=== PATIENT | male | born 1995 | race Caucasian/White ===

== ENCOUNTER 2016-05-24 07:10 | Emergency (ER) | payer BC ==
--- NOTE | 2016-05-24 07:13 | EDPHY ---
H & P Time Seen by Provider: 05/24/16 07:13 HPI/ROS: CHIEF COMPLAINT: Abdominal pain and vomiting HISTORY OF PRESENT ILLNESS: The patient presents the emergency department with complaints of abdominal pain and vomiting. The patient reports he has been symptomatic for the past 2 days. The patient complains of mild generalized abdominal cramping. The patient denies diarrhea. The patient's mother is reportedly sick with gastroenteritis also. The patient denies a past medical history noteworthy only for anxiety. The patient does take Zoloft one a daily basis. REVIEW OF SYSTEMS: A comprehensive 10 point review of systems is otherwise negative aside from elements mentioned in the history of present illness. Source: Patient Exam Limitations: No limitations - Medical/Surgical History PMH: Past medical history: Anxiety - Family History Significant Family History: No pertinent family hx - Social History Smoking Status: Never smoked - Physical Exam Exam: General Appearance: Anxious Eyes: Pupils equal and round no pallor or injection ENT, Mouth: Mucous membranes moist Respiratory: There are no retractions, lungs are clear to auscultation Cardiovascular: Regular rate and rhythm Gastrointestinal: Abdomen is soft and nontender, no masses, bowel sounds normal Neurological: A&O, normal motor function, normal sensory exam, normal cranial nerves Skin: Warm and dry, no rashes Musculoskeletal: Neck is supple nontender Extremities: symmetrical, full range of motion Constitutional: Initial Vital Signs Temperature (C) 36.7 C 05/24/16 08:28 Heart Rate 84 05/24/16 08:28 Respiratory Rate 16 05/24/16 08:28 Blood Pressure 138/68 H 05/24/16 08:28 O2 Sat (%) 99 05/24/16 08:28 O2 Delivery Mode Room Air Allergies/Adverse Reactions: No Known Allergies Allergy (Unverified 12/27/12 11:55) Home Medications: Medication Instructions Recorded Ondansetron Odt [Zofran Odt] 4 mg PO Q4PRN PRN #20 tab 05/24/16 Zoloft 100mg (*) 05/24/16 Medical Decision Making ED Course/Re-evaluation: The patient presents to the ED with a 2 day history of vomiting with recent exposure to someone also suffering from gastroenteritis. The patient arrives by paramedics. He received Zofran prior to arrival. The patient does have a history of anxiety and is quite anxious upon arrival. The patient continues to complain of severe nausea. For this the patient received 1 mg of IV Ativan. The patient received a L of normal saline and screening laboratory studies have been sent. The patient's initial abdominal examination is reassuring. Reexamined the patient at 9:30 a.m.: The patient has had no vomiting in the ED. He does feel mildly nauseous. The patient continues to have a normal abdominal examination without evidence of focal tenderness. Re-examined at 10:15 a.m.: Benign abdominal examination, tolerating p.o. fluids , comfortable with discharge to home with plan for symptomatic care. Differential Diagnosis: Differential diagnosis considered includes gastroenteritis, pyelonephritis, nephrolithiasis, pancreatitis, metabolic abnormality, dehydration - Data Points Laboratory Results: Laboratory Results 05/24/16 07:30 05/24/16 07:30 05/24/16 05/24/16 07:30 07:30 WBC 11.37 10^3/uL H 10^3/uL (3.80-9.50) RBC 5.56 10^6/uL 10^6/uL (4.40-6.38) Hgb 15.9 g/dL g/dL (13.7-17.5) Hct 45.4 % % (40.0-51.0) MCV 81.7 fL fL (81.5-99.8) MCH 28.6 pg pg (27.9-34.1) MCHC 35.0 g/dL g/dL (32.4-36.7) RDW 12.0 % % (11.5-15.2) Plt Count 291 10^3/uL 10^3/uL (150-400) MPV 10.5 fL fL (8.7-11.7) Neut % (Auto) 84.1 % H % (39.3-74.2) Lymph % (Auto) 11.3 % L % (15.0-45.0) [place] % (Auto) 3.7 % L % (4.5-13.0) Eos % (Auto) 0.1 % L % (0.6-7.6) Baso % (Auto) 0.4 % % (0.3-1.7) Nucleat RBC Rel Count 0.0 % % (0.0-0.2) Absolute Neuts (auto) 9.57 10^3/uL H 10^3/uL (1.70-6.50) Absolute Lymphs (auto) 1.28 10^3/uL 10^3/uL (1.00-3.00) Absolute Monos (auto) 0.42 10^3/uL 10^3/uL (0.30-0.80) Absolute Eos (auto) 0.01 10^3/uL L 10^3/uL (0.03-0.40) Absolute Basos (auto) 0.04 10^3/uL 10^3/uL (0.02-0.10) Absolute Nucleated RBC 0.00 10^3/uL 10^3/uL (0-0.01) Immature Gran % 0.4 % % (0.0-1.1) Immature Gran # 0.05 10^3/uL 10^3/uL (0.00-0.10) Sodium 142 mEq/L mEq/L (134-144) Potassium 4.1 mEq/L mEq/L (3.5-5.2) Chloride 103 mEq/L mEq/L (97-110) Carbon Dioxide 23 mEq/l mEq/l (22-31) Anion Gap 16 mEq/L mEq/L (8-16) BUN 21 mg/dL mg/dL (7-23) Creatinine 1.0 mg/dL mg/dL (0.7-1.3) Estimated GFR > 60 Glucose 173 mg/dL H mg/dL (70-100) Calcium 9.9 mg/dL mg/dL (8.5-10.4) Total Bilirubin 1.2 mg/dL mg/dL (0.1-1.4) Conjugated Bilirubin 0.4 mg/dL mg/dL (0.0-0.5) Unconjugated Bilirubin 0.8 mg/dL mg/dL (0.0-1.1) AST 34 IU/L IU/L (17-59) ALT 31 IU/L IU/L (21-72) Alkaline Phosphatase 79 IU/L IU/L (38-126) Total Protein 8.5 g/dL H g/dL (6.3-8.2) Albumin 5.3 g/dL H g/dL (3.5-5.0) Lipase 51.0 IU/L IU/L (23-300) Medications Given: Discontinued Medications Sodium Chloride (Ns) 1,000 mls @ 0 mls/hr IV ONCE ONE PRN Reason: Wide Open Stop: 05/24/16 07:21 Last Admin: 05/24/16 07:29 Dose: 1,000 mls Sodium Chloride (Ns) 1,000 mls @ 0 mls/hr IV ONCE ONE PRN Reason: Wide Open Stop: 05/24/16 07:21 Last Admin: 05/24/16 07:39 Dose: 1,000 mls Lorazepam (Ativan Injection) 1 mg IVP EDNOW ONE Stop: 05/24/16 07:20 Last Admin: 05/24/16 07:39 Dose: 1 mg Ondansetron HCl (Zofran) 4 mg IVP EDNOW ONE Stop: 05/24/16 09:47 Last Admin: 05/24/16 09:49 Dose: 4 mg Departure - Departure Disposition: Home, Routine, Self-Care Clinical Impression: Gastroenteritis Condition: Good Instructions: Gastroenteritis (ED) Additional Instructions: 1. Please take Zofran as directed for nausea. 2. Please return to the emergency department for severe pain, intractable vomiting, fever or other concerns. 3. You have been referred to our on-call primary care provider if you wish to establish primary care. Referrals: Urbano Skinner MD [Medical Doctor] - As per Instructions Stand Alone Forms: School Excuse Prescriptions: Ondansetron Odt [Zofran Odt] 4 mg PO Q4PRN PRN #20 tab PRN Reason: For Nausea
[2016-05-24] MEDS ORDERED: LORazepam 2 MG/ML INJ IVP ONE (07:19)
[2016-05-24] MEDS ORDERED: NS 1,000 ML IV ONE ×2 (07:20)
[2016-05-24 07:42] LABS: % IMMATURE GRANULYOCYTES 0.4 % (0.0-1.1); ABSOLUTE IMMATURE GRANULOCYTES 0.05 10^3/uL (0.00-0.10); ADD DIFF? NO; ADD MORPH? NO; ADD SCAN? NO; ATYPICAL LYMPHOCYTE FLAG 10 (0-99); FRAGMENT RBC FLAG 0 (0-99); HEMATOCRIT 45.4 % (40.0-51.0); HEMOGLOBIN 15.9 g/dL (13.7-17.5); LEFT SHIFT FLG 0 (0-99); LIPEMIA HEMOLYSIS FLAG 90 (0-99); MEAN CELL HEMOGLOBIN 28.6 pg (27.9-34.1); MEAN CELL VOLUME 81.7 fL (81.5-99.8); MEAN PLATELET VOLUME 10.5 fL (8.7-11.7); PLATELET CLUMPS FLAG 0 (0-99); PLATELET COUNT 291 10^3/uL (150-400); RED BLOOD CELL COUNT 5.56 10^6/uL (4.40-6.38)
[2016-05-24 08:01] LABS: ALANINE AMINOTRANSFERASE 31 IU/L (21-72); ALBUMIN 5.3 g/dL (3.5-5.0); ALKALINE PHOSPHATASE 79 IU/L (38-126); ANION GAP 16 mEq/L (8-16); ASPARTATE AMINOTRANSFERASE 34 IU/L (17-59); BILIRUBIN,TOTAL 1.2 mg/dL (0.1-1.4); BILIRUBIN-CONJUGATED 0.4 mg/dL (0.0-0.5); BILIRUBIN-UNCONJUGATED 0.8 mg/dL (0.0-1.1); CALCIUM 9.9 mg/dL (8.5-10.4); CARBON DIOXIDE 23 mEq/l (22-31); CHLORIDE 103 mEq/L (97-110); GLOMERULAR FILTRATION RATE > 60; GLUCOSE 173 mg/dL (70-100); POTASSIUM 4.1 mEq/L (3.5-5.2); SODIUM 142 mEq/L (134-144); TOTAL PROTEIN 8.5 g/dL (6.3-8.2)
[2016-05-24 08:29] VITALS: RESP 16; TEMP 98.1; O2SAT 99
[2016-05-24] MEDS ORDERED: IOPAMIDOL (ISOVUE 370) 100 ML BTL IV ONE (09:35)
[2016-05-24] MEDS ORDERED: ONDANSETRON 4 MG/2 ML VIAL IVP ONE (09:46)
[2016-05-24 10:13] VITALS: BP 148/88; PULSE 74
== END 2016-05-24 10:23 | disposition home or self-care (01) ==
LOC: EDUNIT#
DX: K52.9 Noninfective gastroenteritis and colitis, unspecified (principal)
CPT/HCPCS: 96374; J2060; J2405; Q9967

== ENCOUNTER 2017-04-09 07:30 | Emergency (ER) | payer BC ==
--- NOTE | 2017-04-09 08:04 | EDPHY ---
H & P Stated Complaint: N/V x 3 days; seen at 2 days ago;got IVs/zofran;did not get RX filled Time Seen by Provider: 04/09/17 08:00 - Personal History Current Tetanus Diphtheria and Acellular Pertussis (TDAP): Yes - Medical/Surgical History Hx Asthma: No Hx Chronic Respiratory Disease: No Hx Diabetes: No Hx Cardiac Disease: No Hx Renal Disease: No Hx Cirrhosis: No Hx Alcoholism: No Hx HIV/AIDS: No Hx Splenectomy or Spleen Trauma: No Other PMH: severe anxiety - Social History Smoking Status: Never smoked Constitutional: Initial Vital Signs Temperature (C) 36.8 C 04/09/17 07:33 Heart Rate 112 H 04/09/17 07:33 Respiratory Rate 24 H 04/09/17 07:33 Blood Pressure 119/96 H 04/09/17 07:33 O2 Sat (%) 100 04/09/17 07:33 O2 Delivery Mode Room Air Allergies/Adverse Reactions: No Known Allergies Allergy (Verified 04/09/17 07:32) Home Medications: Medication Instructions Recorded Promethazine HCl [Phenergan 12.5mg 12.5 mg MS Q6-8PRN PRN #10 suppr 04/09/17 supp (*)] Medical Decision Making ED Course/Re-evaluation: CHIEF COMPLAINT: Nausea and vomiting. HISTORY OF PRESENT ILLNESS: This patient is a 21 year old male complaining of nausea and vomiting. His symptoms began late Friday night. he woke feeling nauseous and vomited several times after 3am. He was evaluated at urgent care at that time and received IV fluids and antiemetics. He felt better following this, but symptoms returned in 12 hours. He has now been vomiting for three days and unable to eat or keep much fluids down. He denies any abdominal pain but feels sore from vomiting. He denies history of abdominal surgeries. No fever, diarrhea, body aches, cough, shortness of breath, or other associated symptoms. REVIEW OF SYSTEMS: A 10 point review of systems was performed and is negative with the exception of the elements mentioned in the history of present illness. PHYSICAL EXAM: HR, BP, O2 Sat, RR. Temp noted General Appearance: Alert, well hydrated, appropriate, and non-toxic appearing. Head: Atraumatic without scalp tenderness or obvious injury Eyes: Pupils equal, round, reactive to light and accommodation, EOMI, no trauma , no injection. Ears: Clear bilaterally, no perforation, normal landmarks Nose: Atraumatic, no rhinorrhea, clear. Throat: There is no erythema or exudates, no lesions, normal tonsils, mucus membranes moist. Neck: Supple, 2+ carotid upstroke, nontender, no lymphadenopathy. Respiratory: No retractions, no distress, no wheezes, and no accessory muscle use. Lungs are clear to auscultation bilaterally. Cardiovascular: Regular rate and rhythm, no murmurs, rubs, or gallops. Bilateral carotid, radial, dorsalis pedis, and posterior tibial pulses intact. Good capillary refill all extremities. Gastrointestinal: Epigastric tenderness. Abdomen is soft, non-distended, no masses, no rebound, no guarding, no peritoneal signs. Musculoskeletal: Normal active ROM of all extremities, atraumatic. Neurological: Alert, appropriate, and interactive. The patient has normal DTRs and non-focal cranial nerves, motor, sensory, and cerebellar exam. Skin: No rashes, good turgor, no nodules on palpation. Past medical history: Anxiety. Past surgical history: Noncontributory. Family history: Noncontributory. Social history: Single. Student at [employer]. Originally from [place]. DIFFERENTIAL DIAGNOSIS: The differential diagnosis for the patient's nausea and vomiting included but was not limited to gastroenteritis, gastritis, appendicitis, and medication side effect. MEDICAL DECISION [id number] y/o male presents with three day history of nausea and vomiting. He has epigastric tenderness on exam, likely due to frequent vomiting. Plan to administer 1L IV NS, 4mg IV Zofran, and 1mg IV Dilaudid for pain and nausea relief. Patient continues to feel nauseous. Plan to administer 12.5mg IV Phenergan. The patient was initially feeling better after Phenergan for about 20 minutes, then began vomiting again. 10:28 Patient continues to feel nauseous. Discussed admission to hospital for antiemetics and further IVF administration. Has not been able to eat or drink for several days. The patient declines admission at this time and states he is feeling better than earlier. If he is still unable to eat or drink tomorrow he understands he needs to return to the emergency department. Plan to administer an additional 12.5mg IV Phenergan. 11:30 Patient is feeling completely better and is comfortable with discharge home as above. Plan to d/c with prescription for Phenergan. Followup and return precautions discussed. He is comfortable with this plan. - Data Points Laboratory Results: Laboratory Results 04/09/17 08:07 04/09/17 08:07 04/09/17 04/09/17 08:07 08:07 WBC 8.09 10^3/uL 10^3/uL (3.80-9.50) RBC 5.68 10^6/uL 10^6/uL (4.40-6.38) Hgb 16.4 g/dL g/dL (13.7-17.5) Hct 45.1 % % (40.0-51.0) MCV 79.4 fL L fL (81.5-99.8) MCH 28.9 pg pg (27.9-34.1) MCHC 36.4 g/dL g/dL (32.4-36.7) RDW 11.9 % % (11.5-15.2) Plt Count 271 10^3/uL 10^3/uL (150-400) MPV 9.9 fL fL (8.7-11.7) Neut % (Auto) 86.5 % H % (39.3-74.2) Lymph % (Auto) 8.5 % L % (15.0-45.0) [place] % (Auto) 4.3 % L % (4.5-13.0) Eos % (Auto) 0.1 % L % (0.6-7.6) Baso % (Auto) 0.2 % L % (0.3-1.7) Nucleat RBC Rel Count 0.0 % % (0.0-0.2) Absolute Neuts (auto) 6.99 10^3/uL H 10^3/uL (1.70-6.50) Absolute Lymphs (auto) 0.69 10^3/uL L 10^3/uL (1.00-3.00) Absolute Monos (auto) 0.35 10^3/uL 10^3/uL (0.30-0.80) Absolute Eos (auto) 0.01 10^3/uL L 10^3/uL (0.03-0.40) Absolute Basos (auto) 0.02 10^3/uL 10^3/uL (0.02-0.10) Absolute Nucleated RBC 0.00 10^3/uL 10^3/uL (0-0.01) Immature Gran % 0.4 % % (0.0-1.1) Immature Gran # 0.03 10^3/uL 10^3/uL (0.00-0.10) Sodium 144 mEq/L mEq/L (135-145) Potassium 3.5 mEq/L mEq/L (3.5-5.2) Chloride 103 mEq/L mEq/L (97-110) Carbon Dioxide 22 mEq/l mEq/l (22-31) Anion Gap 19 mEq/L H mEq/L (8-16) BUN 15 mg/dL mg/dL (7-23) Creatinine 1.1 mg/dL mg/dL (0.7-1.3) Estimated GFR > 60 Glucose 124 mg/dL H mg/dL (70-100) Calcium 10.1 mg/dL mg/dL (8.5-10.4) Total Bilirubin 0.8 mg/dL mg/dL (0.1-1.4) Conjugated Bilirubin 0.3 mg/dL mg/dL (0.0-0.5) Unconjugated Bilirubin 0.5 mg/dL mg/dL (0.0-1.1) AST 23 IU/L IU/L (17-59) ALT 27 IU/L IU/L (21-72) Alkaline Phosphatase 74 IU/L IU/L (38-126) Total Protein 8.0 g/dL g/dL (6.3-8.2) Albumin 5.1 g/dL H g/dL (3.5-5.0) Lipase 108 IU/L IU/L (23-300) Medications Given: Discontinued Medications Hydromorphone HCl (Dilaudid) 1 mg IVP EDNOW ONE Stop: 04/09/17 08:24 Last Admin: 04/09/17 08:50 Dose: Not Given Sodium Chloride (Ns) 1,000 mls @ 0 mls/hr IV EDNOW ONE; Wide Open PRN Reason: Protocol Stop: 04/09/17 08:06 Last Admin: 04/09/17 08:21 Dose: 1,000 mls Sodium Chloride (Ns) 1,000 mls @ 0 mls/hr IV EDNOW ONE; Wide Open PRN Reason: Protocol Stop: 04/09/17 08:06 Last Admin: 04/09/17 08:23 Dose: 1,000 mls Ketorolac Tromethamine (Toradol) 30 mg IVP EDNOW ONE Stop: 04/09/17 08:24 Last Admin: 04/09/17 08:50 Dose: 30 mg Ondansetron HCl (Zofran) 4 mg IVP EDNOW ONE Stop: 04/09/17 08:24 Last Admin: 04/09/17 08:50 Dose: 4 mg Promethazine HCl (Phenergan) 12.5 mg IVP EDNOW ONE Stop: 04/09/17 09:14 Last Admin: 04/09/17 09:16 Dose: 12.5 mg Promethazine HCl (Phenergan) 12.5 mg IVP EDNOW ONE Stop: 04/09/17 10:33 Last Admin: 04/09/17 10:36 Dose: 12.5 mg Departure - Departure Disposition: Home, Routine, Self-Care Clinical Impression: Nausea and vomiting Qualifiers: Vomiting type: unspecified Vomiting Intractability: non-intractable Qualified Code(s): R11.2 - Nausea with vomiting, unspecified Condition: Good Instructions: Acute Nausea and Vomiting (ED) Additional Instructions: 1. Take Phenergan as prescribed as needed for nausea. 2. Stay well hydrated. 3. Follow up with your primary care physician this week for symptoms unresolved in 1-2 days. 4. Return to the emergency department for uncontrollable vomiting or diarrhea, fever, worsening pain, or other worsening of condition. Referrals: Darvin Sexton MD [Medical Doctor] - As per Instructions Stand Alone Forms: School Excuse Prescriptions: Promethazine HCl [Phenergan 12.5mg supp (*)] 12.5 mg MS Q6-8PRN PRN #10 suppr PRN Reason: Nausea/Vomiting, Use 1st Report Scribed for: Gregorio Baron Report Scribed by: Nancy Alcazar Date of Report: 04/09/17 Time of Report: 11:29
[2017-04-09] MEDS ORDERED: NS 1,000 ML IV ONE ×2 (08:05)
[2017-04-09] MEDS ORDERED: HYDROmorphONE/DILAUDID 1 MG/ML INJ IVP ONE (08:23)
[2017-04-09] MEDS ORDERED: KETOROLAC 30 MG/1 ML SDV IVP ONE (08:23)
[2017-04-09] MEDS ORDERED: ONDANSETRON 4 MG/2 ML VIAL IVP ONE (08:23)
[2017-04-09 08:41] LABS: PLATELET COUNT 271 10^3/uL (150-400)
[2017-04-09] MEDS ORDERED: PROMETHAZINE HCL 25 MG/ML INJ IVP ONE ×2 (09:13→10:32)
[2017-04-09 09:50] VITALS: RESP 18
[2017-04-09 11:44] VITALS: BP 134/92; PULSE 74; TEMP 98.1; O2SAT 95
== END 2017-04-09 11:44 | disposition home or self-care (01) ==
DX: R11.2 Nausea with vomiting, unspecified (principal); E86.9 Volume depletion, unspecified
CPT/HCPCS: 96374; J1170; J1885; J2405; J2550

== ENCOUNTER 2017-05-25 06:41 | Emergency (ER) | payer BC ==
[2017-05-25] MEDS ORDERED: HALOPERIDOL LACT 5 MG/ML INJ IVP ONE ×2 (07:12→07:26)
[2017-05-25] MEDS ORDERED: NS 1,000 ML IV ONE ×2 (07:12)
--- NOTE | 2017-05-25 07:12 | EDPHY ---
H & P Time Seen by Provider: 05/25/17 07:01 HPI/ROS: Chief complaint. Vomiting HPI. Patient's 22-year-old male presents emergency department with 4 hr of vomiting. No diarrhea. Smokes marijuana daily. No abdominal pain. He does not think he has had any bad food exposure, traveling or sick contact exposure. He has been seen previously for similar symptoms. He had previously had a prescription for Phenergan but he is out. No fever. No chest pain no shortness of breath. No urinary symptoms. Complains of generalized weakness ROS Constitutional. Weakness Eyes. no problems with vision ENT. no sore throat, no nasal drainage Cardiovascular. no chest pain Respiratory. no shortness of breath, no cough Abdominal. Vomiting . no problems urinating MS. no calf pain/swelling, no neck/back pain, no joint pain Skin. no rash Lymph. no swollen glands Neuro. no headache, no dizziness, no difficulty walking or with speech Past Medical/Surgical History: Anxiety Social History: Single, nonsmoker, no alcohol Smoking Status: Never smoked Physical Exam: General Appearance: Alert well-developed male moderate distress vital signs are stable Eyes: Pupils equal and round no pallor or injection. ENT, Mouth: Mucous membranes are moist. Respiratory: There are no retractions, lungs are clear to auscultation. Cardiovascular: Regular rate and rhythm. Gastrointestinal: Abdomen is soft and nontender, no masses, bowel sounds normal. Neurological: Awake and alert, sensory and motor exams grossly normal. Skin: Warm and dry, no rashes. Musculoskeletal: Neck is supple nontender. Extremities symmetrical, full range of motion. Psychiatric: Patient is oriented X 3, there is no agitation. Constitutional: Initial Vital Signs Temperature (C) 36.7 C 05/25/17 06:45 Heart Rate 69 05/25/17 06:45 Respiratory Rate 20 05/25/17 06:45 Blood Pressure 112/80 05/25/17 06:45 O2 Sat (%) 99 05/25/17 06:45 O2 Delivery Mode Room Air Allergies/Adverse Reactions: No Known Allergies Allergy (Verified 04/09/17 07:32) Home Medications: Medication Instructions Recorded Promethazine HCl [Phenergan 12.5mg 12.5 mg OH Q6-8PRN PRN #10 suppr 04/09/17 supp (*)] Promethazine HCl [Phenergan 25mg 25 mg PO Q4-6PRN PRN #10 tab 05/25/17 (*)] Promethazine HCl [Phenergan 50mg 50 mg OH Q4-6PRN PRN #7 suppr 05/25/17 supp (*)] Medical Decision Making Procedures: IV normal saline with target of 2 L. Haldol IV, Benadryl IV ED Course/Re-evaluation: On re-evaluation patient is somewhat nauseated he is still somewhat agitated and pacing. He is given another 2.5 mg Haldol IV and Ativan 1 mg IV Re-evaluation at 7:35 a.m. And patient tells me he is no longer nauseated. He is still standing at the bedside as he says he has achiness from vomiting and it is better if he is standing. 7:50 a.m. Patient tells us that he wants to leave. He is given ice chips for oral challenge. Recheck again at 8:00 a.m.--patient feels much better. The patient and I discussed cyclic vomiting syndrome, stress anxiety, laboratory evaluation, treatment plan including criteria for return and importance of follow-up and further evaluation. He expresses understanding and agreement. Patient will take an Uber home Differential Diagnosis: This is likely cyclic vomiting syndrome. Patient has anxiety. He has had previous similar symptoms. He smokes THC. I have also considered gastroenteritis. I considered dehydration and electrolyte abnormalities as well. - Data Points Laboratory Results: Laboratory Results 05/25/17 06:55 05/25/17 06:55 Sodium 143 mEq/L mEq/L (135-145) Potassium 3.8 mEq/L mEq/L (3.5-5.2) Chloride 109 mEq/L mEq/L (97-110) Carbon Dioxide 20 mEq/l L mEq/l (22-31) Anion Gap 14 mEq/L mEq/L (8-16) BUN 17 mg/dL mg/dL (7-23) Creatinine 0.9 mg/dL mg/dL (0.7-1.3) Estimated GFR > 60 Glucose 127 mg/dL H mg/dL (70-100) Calcium 9.6 mg/dL mg/dL (8.5-10.4) Medications Given: Discontinued Medications Diphenhydramine HCl (Benadryl Injection) 12.5 mg IVP EDNOW ONE Stop: 05/25/17 07:13 Last Admin: 05/25/17 07:20 Dose: 12.5 mg Haloperidol Lactate (Haldol Injection) 2.5 mg IVP EDNOW ONE Stop: 05/25/17 07:13 Last Admin: 05/25/17 07:20 Dose: 2.5 mg Haloperidol Lactate (Haldol Injection) 2.5 mg IVP EDNOW ONE Stop: 05/25/17 07:27 Last Admin: 05/25/17 07:31 Dose: 2.5 mg Sodium Chloride (Ns) 1,000 mls @ 0 mls/hr IV EDNOW ONE; Wide Open PRN Reason: Protocol Stop: 05/25/17 07:13 Last Admin: 05/25/17 07:20 Dose: 1,000 mls Sodium Chloride (Ns) 1,000 mls @ 0 mls/hr IV EDNOW ONE; Wide Open PRN Reason: Protocol Stop: 05/25/17 07:13 Last Admin: 05/25/17 07:20 Dose: 1,000 mls Lorazepam (Ativan Injection) 1 mg IVP EDNOW ONE Stop: 05/25/17 07:27 Last Admin: 05/25/17 07:30 Dose: 1 mg Departure - Departure Disposition: Home, Routine, Self-Care Clinical Impression: Vomiting Qualifiers: Vomiting type: cyclical vomiting Vomiting Intractability: non-intractable Nausea presence: with nausea Qualified Code(s): G43.A0 - Cyclical vomiting, not intractable Condition: Good Instructions: Acute Nausea and Vomiting (ED) Additional Instructions: Frequent, small sips fluids well nauseated. Gradual diet advancement Phenergan either orally or by suppository for nausea and vomiting. Decreased urine marijuana consumption as this may be contributing to your vomiting. Return for worsening symptoms. Follow up at [facility] in 2-3 days without fail Referrals: NONE *PRIMARY CARE P,. [Primary Care Provider] - As per Instructions [facility] [Outside] - As per Instructions Prescriptions: Promethazine HCl [Phenergan 25mg (*)] 25 mg PO Q4-6PRN PRN #10 tab PRN Reason: Nausea/Vomiting, Use 1st Promethazine HCl [Phenergan 50mg supp (*)] 50 mg OH Q4-6PRN PRN #7 suppr PRN Reason: Nausea/Vomiting, Can'T Take Po
[2017-05-25] MEDS ORDERED: LORazepam 2 MG/ML INJ IVP ONE (07:26)
[2017-05-25 08:09] VITALS: BP 149/83
== END 2017-05-25 08:09 | disposition home or self-care (01) ==
LOC: EDUNIT#
DX: G43.A0 Cyclical vomiting, in migraine, not intractable (principal); E86.9 Volume depletion, unspecified
CPT/HCPCS: 96374; J1200; J1630; J2060

== ENCOUNTER 2017-06-15 09:47 | Emergency (ER) | payer BC ==
--- NOTE | 2017-06-15 10:13 | EDPHY ---
H & P Stated Complaint: cyclical vomiting/daily thc use Time Seen by Provider: 06/15/17 10:13 HPI/ROS: HPI: This is a 22-year-old male who presents with Chief Complaint: cyclical vomiting/daily THC use Location: GI Quality: nausea, vomiting Duration: starting at 8 am Signs and Symptoms: no fever, + nausea, + vomiting, no hematemesis, no blood in stool, no abdominal bloating, no diarrhea, no back pain, no urinary symptoms, no testicular/groin pain, no indigestion, no chest pain, no shortness of breath Timing: Acute on chronic Severity: Moderate Context: Patient smokes marijuana almost daily and admits to smoking marijuana all day yesterday approximately for 10 hr. He woke up around 8:00 a.m. This morning with nausea and has vomited primarily light yellowish liquid in small amounts 5-10 times. He denies any actual abdominal pain/fever/diarrhea/urinary symptoms/testicular groin pain. He was seen in this emergency room on 2017 with similar symptoms. He was given Haldol and Benadryl with complete relief. He did not follow up with Gastroenterology or primary care provider per recommendation. Several hours after being discharged home on the , he felt like his tongue was in enlarged, bilateral lower extremity restless legs and had muscle cramps in both of his legs. He believes is related to medication he received during their ER visit that he had never taken in the past. No prior history of abdominal surgeries. Modifying Factors: None Comment: ROS: see HPI Constitutional: No fever, no chills, no weight loss Eyes: No blurred vision Respiratory: No shortness of breath, no cough Cardiovascular: No chest pain, no palpitations Gastrointestinal: + nausea, + vomiting, no diarrhea, no hematemesis, no blood in stool Genitourinary: No dysuria, no blood in urine Extremities: No myalgias, no edema Neurologic: No weakness, no numbness Skin: No rashes, no petechiae Hematologic: No bruising, no bleeding MEDICAL/SURGICAL/SOCIAL HISTORY: Medical history: Generalized anxiety disorder, daily marijuana use Surgical history: Denies 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 Originally from [place]. Family history noncontributory. CONSTITUTIONAL: Extremely well-appearing polite and cooperative young adult white male, awake and alert, no obvious distress HEENT: Atraumatic and normocephalic, PERRL, EOMI. Nares patent; no rhinorrhea; no nasal mucosal edema. Tympanic membranes clear. Oropharynx clear, no exudate and moist pink mucosa. Airway patent. No lymphadenopathy. No meningismus. Cardiovascular: Normal S1/S2, regular rate, regular rhythm, without murmur rub or gallop. PULMONARY/CHEST: Symmetrical and nontender. Clear to auscultation bilaterally. Good air movement. No accessory muscle usage. ABDOMEN: Soft, nondistended, nontender, no rebound, no guarding, no peritoneal signs, no masses or organomegaly. No CVAT. EXTREMITIES: 2/2 pulses, strength 5/5, no deformities, no clubbing, no cyanosis or edema. NEUROLOGICAL: no focal neuro deficits. GCS 15. SKIN: Warm and dry, no erythema. no rash. Good capillary refill. Source: Patient Exam Limitations: No limitations - Personal History Current Tetanus/Diphtheria Vaccine: Yes - Medical/Surgical History Hx Asthma: No Hx Chronic Respiratory Disease: No Hx Diabetes: No Hx Cardiac Disease: No Hx Renal Disease: No Hx Cirrhosis: No Hx Alcoholism: No Hx HIV/AIDS: No Hx Splenectomy or Spleen Trauma: No Other PMH: severe anxiety/?cyclical vomiting - Social History Smoking Status: Never smoked Constitutional: Initial Vital Signs Temperature (C) 36.3 C 06/15/17 09:55 Heart Rate 75 06/15/17 09:55 Respiratory Rate 20 06/15/17 09:55 Blood Pressure 112/84 H 06/15/17 09:55 O2 Sat (%) 100 06/15/17 09:55 O2 Delivery Mode Room Air Allergies/Adverse Reactions: haloperidol [From Haldol] Allergy (Verified 06/15/17 10:19) Home Medications: Medication Instructions Recorded Ondansetron Odt [Zofran Odt 4 mg 4 mg PO Q4 PRN #12 tab 06/15/17 (*)] Prozac 10 MG (*) 06/15/17 Medical Decision Making ED Course/Re-evaluation: Vital signs reviewed upon arrival and stable. No systemic signs. 1000: BMP lab draw, 2 L normal saline, IV Ativan 2 mg and IV Benadryl 50 mg given abdomen soft and non-tender. Doubt Surgical abdomen. 1115: labs reviewed; anion gap high normal but no significant electrolyte disturbances/acute kidney injury 1130: Reassessed patient. Sleeping soundly for the last 1 hr and 15 min. Reports he feels better and is requesting to be discharged home. 1145: Drinking fluids and eating Tate crackers without difficulty. Advised supportive care and to stop using marijuana daily This patient was seen under the supervision of my secondary supervising physician. I evaluated care for this patient independently. Differential Diagnosis: Differential diagnosis includes but is not limited gastroenteritis, cyclical vomiting syndrome, small-bowel obstruction. - Data Points Laboratory Results: Laboratory Results 06/15/17 10:05 06/15/17 10:05 Sodium 144 mEq/L mEq/L (135-145) Potassium 4.2 mEq/L mEq/L (3.5-5.2) Chloride 103 mEq/L mEq/L (97-110) Carbon Dioxide 23 mEq/l mEq/l (22-31) Anion Gap 18 mEq/L H mEq/L (8-16) BUN 18 mg/dL mg/dL (7-23) Creatinine 1.1 mg/dL mg/dL (0.7-1.3) Estimated GFR > 60 Glucose 185 mg/dL H mg/dL (70-100) Calcium 9.8 mg/dL mg/dL (8.5-10.4) Medications Given: Discontinued Medications Diphenhydramine HCl (Benadryl Injection) 50 mg IVP EDNOW ONE Stop: 06/15/17 10:15 Last Admin: 06/15/17 10:24 Dose: 50 mg Haloperidol Lactate (Haldol Injection) 5 mg IVP EDNOW ONE Stop: 06/15/17 10:15 Last Admin: 06/15/17 10:26 Dose: Not Given Sodium Chloride (Ns) 1,000 mls @ 0 mls/hr IV EDNOW ONE; Wide Open PRN Reason: Protocol Stop: 06/15/17 10:15 Last Admin: 06/15/17 10:23 Dose: 1,000 mls Sodium Chloride (Ns) 1,000 mls @ 0 mls/hr IV EDNOW ONE; Wide Open PRN Reason: Protocol Stop: 06/15/17 10:15 Last Admin: 06/15/17 10:23 Dose: 1,000 mls Lorazepam (Ativan Injection) 2 mg IVP EDNOW ONE Stop: 06/15/17 10:20 Last Admin: 06/15/17 10:23 Dose: 2 mg Departure - Departure Disposition: Home, Routine, Self-Care Clinical Impression: Cannabis dependence, daily use Anxiety disorder Qualifiers: Anxiety disorder type: generalized anxiety disorder Qualified Code(s): F41.1 - Generalized anxiety disorder Cyclical vomiting with nausea Qualifiers: Vomiting Intractability: non-intractable Qualified Code(s): G43.A0 - Cyclical vomiting, not intractable Condition: Good Instructions: Cannabis Abuse (ED), Cyclic Vomiting Syndrome (ED) Additional Instructions: Consume daily a minimum of 8-10 glasses of water or electrolyte fluid replacement drinks that include Gatorade, Powerade, Pedialyte. Eat a bland diet for the next 48 hours and then slowly advance as tolerated. Take Zofran 1 tab every 4 hours as needed for nausea, vomiting. Your daily marijuana use is directly related to your cyclical nausea vomiting syndrome. Please stop using marijuana. Establish primary care at [facility]. Return to the ER immediately if you experience new, continued or worsening abdominal pain, fevers/chills, inability to tolerate oral intake, new pain, or any other symptoms that concern you. Referrals: [facility],. [Clinic] - As per Instructions Prescriptions: Ondansetron Odt [Zofran Odt 4 mg (*)] 4 mg PO Q4 PRN #12 tab PRN Reason: Nausea/Vomiting, Use 1st
[2017-06-15] MEDS ORDERED: NS 1,000 ML IV ONE ×2 (10:14)
[2017-06-15] MEDS ORDERED: HALOPERIDOL LACT 5 MG/ML INJ IVP ONE (10:14)
[2017-06-15] MEDS ORDERED: LORazepam 2 MG/ML INJ IVP ONE (10:19)
[2017-06-15 12:04] VITALS: BP 115/64
== END 2017-06-15 12:02 | disposition home or self-care (01) ==
DX: G43.A0 Cyclical vomiting, in migraine, not intractable (principal); F41.1 Generalized anxiety disorder; F12.20 Cannabis dependence, uncomplicated; E86.9 Volume depletion, unspecified
CPT/HCPCS: 96374; J1200; J2060

== ENCOUNTER 2017-06-17 06:51 | Emergency (ER) | payer BC ==
[2017-06-17] MEDS ORDERED: NS 1,000 ML IV ONE ×2 (07:17)
[2017-06-17] MEDS ORDERED: LORazepam 2 MG/ML INJ IVP ONE (07:17)
--- NOTE | 2017-06-17 07:21 | EDPHY ---
H & P Stated Complaint: cyclic vomiting-hx of mj use Time Seen by Provider: 06/17/17 07:04 HPI/ROS: CHIEF COMPLAINT: Vomiting HISTORY OF PRESENT ILLNESS: This is a 22-year-old with history of daily marijuana use and cyclic vomiting syndrome who presents with 3 hr of persistent nonbloody emesis. He was in the emergency department with same day before yesterday. At that visit he was treated with Ativan, IV fluids, and Benadryl and was able to return home. He did well yesterday but woke this morning with vomiting. He is had akathisia when given Haldol. He has mild diffuse abdominal pain, no focal abdominal pain. He has not had fever. No urinary symptoms. No diarrhea or constipation. He states that he has not smoked marijuana since he was last in the emergency department. REVIEW OF SYSTEMS: A ten point review of systems was performed and is negative with the exception of the items mentioned in the HPI. Past medical history: Cyclic vomiting syndrome, generalized anxiety disorder Past surgical history: None Social history: He is a student at the [employer]. He will be returning to [place] in 2 weeks and working through the summer. He drinks alcohol on occasion only. He does not use tobacco products. General Appearance: Alert. Vital signs reviewed. Blood pressure 162/110 at triage. Eyes: Pupils equal and round, no conjunctival injection, no discharge. Anicteric. ENT, Mouth: Mucous membranes are moist, no oropharyngeal erythema or edema. Neck: No lymphadenopathy, supple. Respiratory: Lungs are clear to auscultation; no wheezes, rales, or rhonchi. Cardiovascular: Regular rate and rhythm; no murmur, rub, or gallop. Gastrointestinal: Abdomen is with mild diffuse tenderness, no guarding, no masses or organomegaly, bowel sounds normal. Skin: Slightly diaphoretic, no rashes on exposed skin, normal color. Back: Nontender to palpation over the thoracolumbar spine. No CVAT. Extremities: No lower extremity edema, no calf tenderness or swelling. Neurological: Alert and oriented. Moving all four extremities easily and equally. Psychiatric: Normal affect. - Personal History Current Tetanus Diphtheria and Acellular Pertussis (TDAP): Yes - Medical/Surgical History Hx Asthma: No Hx Chronic Respiratory Disease: No Hx Diabetes: No Hx Cardiac Disease: No Hx Renal Disease: No Hx Cirrhosis: No Hx Alcoholism: No Hx HIV/AIDS: No Hx Splenectomy or Spleen Trauma: No Other PMH: severe anxiety/?cyclical vomiting - Social History Smoking Status: Never smoked Constitutional: Initial Vital Signs Temperature (C) 36.4 C 06/17/17 06:53 Heart Rate 90 06/17/17 06:53 Respiratory Rate 16 06/17/17 06:53 Blood Pressure 162/110 H 06/17/17 06:53 O2 Sat (%) 98 06/17/17 06:53 O2 Delivery Mode Room Air Allergies/Adverse Reactions: haloperidol [From Haldol] Allergy (Verified 06/18/17 16:31) Home Medications: Medication Instructions Recorded Prozac 06/17/17 Ondansetron 06/18/17 Phenergan 06/18/17 Medical Decision Making ED Course/Re-evaluation: 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 An IV was started and he was given 2 L of IV normal saline, 2 mg IV Ativan, and 50 mg IV Benadryl. He did well with this approach 2 days ago. 8:10 a.m.. Patient is sleeping. Chemistry reviewed. He has an anion gap of 19. This is consistent with previous visits under similar circumstances. 9:00 a.m.. Patient is now wake. Abdomen is soft and nontender. He has not had further vomiting. I anticipate that he will be able to return home. I recommended follow-up at [facility], as needed. Differential Diagnosis: I considered a differential diagnosis that includes but is not limited to cyclic vomiting syndrome, gastritis, gastroenteritis, bowel obstruction, pancreatitis, and appendicitis. - Data Points Laboratory Results: Laboratory Results 06/17/17 07:30 Medications Given: Discontinued Medications Diphenhydramine HCl (Benadryl Injection) 50 mg IVP EDNOW ONE Stop: 06/17/17 07:19 Last Admin: 06/17/17 07:26 Dose: 50 mg Sodium Chloride (Ns) 1,000 mls @ 0 mls/hr IV EDNOW ONE; Wide Open PRN Reason: Protocol Stop: 06/17/17 07:18 Last Admin: 06/17/17 07:29 Dose: 1,000 mls Sodium Chloride (Ns) 1,000 mls @ 0 mls/hr IV EDNOW ONE; Wide Open PRN Reason: Protocol Stop: 06/17/17 07:18 Last Admin: 06/17/17 07:29 Dose: 1,000 mls Lorazepam (Ativan Injection) 2 mg IVP EDNOW ONE Stop: 06/17/17 07:18 Last Admin: 06/17/17 07:26 Dose: 2 mg Ondansetron HCl (Zofran Odt) 4 mg PO EDNOW ONE Stop: 06/17/17 09:30 Last Admin: 06/17/17 09:32 Dose: 4 mg Departure - Departure Disposition: Home, Routine, Self-Care Clinical Impression: Cyclic vomiting syndrome Qualifiers: Vomiting Intractability: non-intractable Nausea presence: with nausea Qualified Code(s): G43.A0 - Cyclical vomiting, not intractable Condition: Good Instructions: Cyclic Vomiting Syndrome (ED) Additional Instructions: As previously advised, no more marijuana. Use the zofran for nausea if needed. You can let one dissolve under your tongue every four hours for nausea. Referrals: [facility],. [Clinic] - As per Instructions
[2017-06-17 09:14] VITALS: BP 105/68
[2017-06-17] MEDS ORDERED: ONDANSETRON DISINTEGRATING 4 MG TAB PO ONE (09:29)
== END 2017-06-17 09:32 | disposition home or self-care (01) ==
DX: G43.A0 Cyclical vomiting, in migraine, not intractable (principal); E86.9 Volume depletion, unspecified
CPT/HCPCS: 96374; J1200; J2060

== ENCOUNTER 2017-06-18 16:20 | Emergency (ER) | payer BC ==
--- NOTE | 2017-06-18 16:38 | EDPHY ---
H & P Stated Complaint: n/v Time Seen by Provider: 06/18/17 16:37 HPI/ROS: CHIEF COMPLAINT: Cyclic vomiting HISTORY OF PRESENT ILLNESS: The patient has a history of cyclic vomiting and frequent ED visits for the condition. He recently stopped using marijuana 5 days ago however continues to have symptoms. He used Zofran today and continued to have ongoing vomiting which prompted visit to the emergency department this afternoon. The patient denies any fever, cough or congestion. He denies acute abdominal pain. He denies melena or hematemesis. REVIEW OF SYSTEMS: A comprehensive 10 point review of systems is otherwise negative aside from elements mentioned in the history of present illness. Source: Patient Exam Limitations: No limitations - Personal History Current Tetanus/Diphtheria Vaccine: Unsure Current Tetanus Diphtheria and Acellular Pertussis (TDAP): Unsure - Medical/Surgical History Hx Asthma: No Hx Chronic Respiratory Disease: No Hx Diabetes: No Hx Cardiac Disease: No Hx Renal Disease: No Hx Cirrhosis: No Hx Alcoholism: No Hx HIV/AIDS: No Hx Splenectomy or Spleen Trauma: No Other PMH: severe anxiety/?cyclical vomiting - Social History Smoking Status: Never smoked - Physical Exam Exam: General Appearance: Alert, no distress Eyes: Pupils equal and round no pallor or injection ENT, Mouth: Mucous membranes moist Respiratory: There are no retractions, lungs are clear to auscultation Cardiovascular: Regular rate and rhythm Gastrointestinal: Abdomen is soft and nontender, no masses, bowel sounds normal Neurological: A&O, normal motor function, normal sensory exam, normal cranial nerves Skin: Warm and dry, no rashes Musculoskeletal: Neck is supple nontender Extremities: symmetrical, full range of motion Constitutional: Initial Vital Signs Temperature (C) 36.5 C 06/18/17 16:31 Heart Rate 68 06/18/17 16:31 Respiratory Rate 20 06/18/17 16:31 Blood Pressure 137/102 H 06/18/17 16:31 O2 Sat (%) 98 06/18/17 16:31 O2 Delivery Mode Room Air Allergies/Adverse Reactions: haloperidol [From Haldol] Allergy (Verified 06/18/17 16:31) Home Medications: Medication Instructions Recorded Prozac 06/17/17 Ondansetron 06/18/17 Phenergan 06/18/17 Promethazine HCl [Phenergan 50mg 50 mg [place] Q8 PRN #20 suppr 06/18/17 supp (*)] Medical Decision Making ED Course/Re-evaluation: The patient had an IV established. He received 50 mg of Benadryl and 1 mg of IV Ativan. I reviewed the patient's past medical records. His vital signs are stable. His abdominal examination is benign. The patient was re-evaluated at 6:00 p.m.. He is not having any further vomiting. He will be discharged home with a prescription for Phenergan suppositories. The patient's abdominal examination is benign. I do not feel the laboratory testing or imaging is indicated. The patient will be discharged home with customary aftercare instructions and return precautions. Differential Diagnosis: Differential diagnosis considered includes cyclic vomiting syndrome, perforation , obstruction, dehydration - Data Points Medications Given: Discontinued Medications Diphenhydramine HCl (Benadryl Injection) 50 mg IVP EDNOW ONE Stop: 06/18/17 16:50 Last Admin: 06/18/17 16:56 Dose: 50 mg Sodium Chloride (Ns) 1,000 mls @ 0 mls/hr IV EDNOW ONE; Wide Open PRN Reason: Protocol Stop: 06/18/17 16:42 Last Admin: 06/18/17 16:56 Dose: 1,000 mls Lorazepam (Ativan Injection) 1 mg IVP EDNOW ONE Stop: 06/18/17 16:50 Last Admin: 06/18/17 16:56 Dose: 1 mg Departure - Departure Disposition: Home, Routine, Self-Care Clinical Impression: Cyclic vomiting syndrome Condition: Good Instructions: Cyclic Vomiting Syndrome (ED) Additional Instructions: 1. You have been given a prescription for Phenergan suppositories to use in the event of recurrent nausea and vomiting. 2. Benadryl 50 mg every 6 hr as needed. 3. Continue complete abstinence from marijuana. 4. Please continue your regular medications. Prescriptions: Promethazine HCl [Phenergan 50mg supp (*)] 50 mg VA Q8 PRN #20 suppr PRN Reason: for nausea and vomiting
[2017-06-18] MEDS ORDERED: NS 1,000 ML IV ONE (16:41)
[2017-06-18] MEDS ORDERED: LORazepam 2 MG/ML INJ IVP ONE (16:49)
[2017-06-18 18:25] VITALS: BP 123/70
== END 2017-06-18 18:26 | disposition home or self-care (01) ==
DX: G43.A0 Cyclical vomiting, in migraine, not intractable (principal); E86.9 Volume depletion, unspecified
CPT/HCPCS: 96374; J1200; J2060

== ENCOUNTER 2017-06-19 08:57 | Emergency (ER) | payer BC ==
[2017-06-19] MEDS ORDERED: ONDANSETRON 4 MG/2 ML VIAL ONE (09:14)
[2017-06-19] MEDS ORDERED: ONDANSETRON 4 MG/2 ML VIAL IVP ONE (09:23)
[2017-06-19] MEDS ORDERED: NS 1,000 ML IV ONE (09:25)
[2017-06-19] MEDS ORDERED: CHLORDIAZEPOXIDE 25MG PREPK#6 BTL TAKEHOME ONE (09:34)
--- NOTE | 2017-06-19 09:34 | EDPHY ---
H & P Stated Complaint: freq visits cyclical vomiting/stopped thc 5 days ago Time Seen by Provider: 06/19/17 09:27 HPI/ROS: CHIEF COMPLAINT: Continued vomiting HISTORY OF PRESENT ILLNESS: 22-year-old male history of frequent ER visits for recurrent vomiting bleed possibly be secondary to marijuana. He awoke at 5:00 a.m. Today with continued vomiting not relieved with oral Phenergan or oral Zofran. He stopped using marijuana 5 days ago. He was seen in the ER last evening for similar complaint, discharged with a prescription for Phenergan suppository which he did not fill yet because the time when he got home. He has an upcoming appointment with a porcelain finisher. He has had no complaints of abdominal pain. No back or flank pain. By the time I examined the patient has already received Zofran per nursing protocol signs states that he is feeling relief of nausea. PRIMARY CARE PROVIDER: REVIEW OF SYSTEMS: A ten point review of systems was performed and is negative with the exception of the items mentioned in the HPI PAST MEDICAL & SURGICAL HISTORY: Cyclic vomiting possible cannabis hyperemesis SOCIAL HISTORY:Chronic marijuana use stopped using 5 days ago PHYSICAL EXAM (Prior to examination, patient consented to physical exam, hands were washed and my usual and customary physical exam procedures followed) 1) GENERAL: Well-developed, well-nourished, alert and oriented. Appears to be in no acute distress. 2) HEAD: Normocephalic, atraumatic 3) HEENT: Pupils equal, round, reactive to light bilaterally. Sclera anicteric. [Nasopharynx, oropharynx, clear, no lesions. Moist mucous membranes 4) NECK: Full range of motion, no meningeal signs. 5) LUNGS: Clear auscultation bilaterally, no wheezes, no rhonchi, no retractions. 6) HEART: Regular rate and rhythm, no murmur, no heave, no gallop. 7) ABDOMEN: No guarding, no rebound, no focal tenderness, negative McBurney's, negative Christiansen's, negative Rovsing's, negative peritoneal sign, I am unable to elicit any abdominal pain on exam 8) MUSCULOSKELETAL: Moving all extremities, no focal areas of tenderness, no obvious trauma. No peripheral edema or discoloration. 9) BACK: No CVA tenderness, no midline vertebral tenderness, no fluctuance, no step-off, no obvious trauma, no visual or palpable abnormality. 10) SKIN: No rash, no petechiae. 11) Psychiatric: Patient is oriented X 3, there is no agitation. DIFFERENTIAL DIAGNOSIS: My differential diagnosis includes, but is not limited to, acute appendicitis, acute cholecystitis, bowel obstruction, acute pancreatitis,, gastritis and urinary tract infection. The patient understands that this diagnosis is provisional and can never be 100% accurate. This is a partial list of diagnoses considered. These considerations are based on history , physical exam, past history and reassessment. - Personal History Current Tetanus/Diphtheria Vaccine: Yes - Medical/Surgical History Hx Asthma: No Hx Chronic Respiratory Disease: No Hx Diabetes: No Hx Cardiac Disease: No Hx Renal Disease: No Hx Cirrhosis: No Hx Alcoholism: No Hx HIV/AIDS: No Hx Splenectomy or Spleen Trauma: No Other PMH: severe anxiety/?cyclical vomiting - Social History Smoking Status: Never smoked Constitutional: Initial Vital Signs Temperature (C) 36.4 C 06/19/17 09:00 Heart Rate 72 06/19/17 09:00 Respiratory Rate 19 06/19/17 09:00 Blood Pressure 146/87 H 06/19/17 09:00 O2 Sat (%) 98 06/19/17 09:00 O2 Delivery Mode Room Air Allergies/Adverse Reactions: haloperidol [From Haldol] Allergy (Verified 06/19/17 08:58) Home Medications: Medication Instructions Recorded Prozac 06/17/17 Ondansetron 06/18/17 Phenergan 06/18/17 Promethazine HCl [Phenergan 50mg 50 mg [place] Q8 PRN #20 suppr 06/18/17 supp (*)] Medical Decision Making ED Course/Re-evaluation: 10:07 a.m.: Patient was re-evaluated with serial exams. He had an IV established and was given IV Zofran prior to my examining him and he felt improvement prior to my examining him. At no point has experienced abdominal pain. He was observed in the ER for period of time. I have observed him tolerating oral intake. His abdomen remains benign at this time. He is smiling , states that he is feeling improvement is requesting discharge. He has a prescription of Phenergan suppositories with him that he is planning getting filled this morning. I do not think that laboratory studies or imaging studies are indicated I think that acute surgical abdominal pathology is less than likely. Definitely if he is unable to tolerate oral intake needs to return to the ER immediately for re-evaluation. He feels comfortable being discharged. Old medical records have been reviewed. Care of patient under supervision of secondary supervising physician Dr Monae . - Data Points Medications Given: Discontinued Medications Sodium Chloride (Ns) 1,000 mls @ 3,000 mls/hr IV ONCE ONE Stop: 06/19/17 09:44 Last Admin: 06/19/17 09:25 Dose: 1,000 mls Ondansetron HCl (Zofran) 4 mg IVP EDNOW ONE Stop: 06/19/17 09:24 Last Admin: 06/19/17 09:24 Dose: 4 mg Departure - Departure Disposition: Home, Routine, Self-Care Clinical Impression: Cyclic vomiting syndrome Qualifiers: Vomiting Intractability: non-intractable Nausea presence: with nausea Qualified Code(s): G43.A0 - Cyclical vomiting, not intractable Condition: Good Instructions: Acute Nausea and Vomiting (ED) Additional Instructions: Return to the ER if you are unable to tolerate oral intake, if you develop abdominal pain, fevers or any other symptoms that concern you. Please feel you prescription for Phenergan suppositories today and please follow-up with your porcelain finisher. Referrals: Hugo Garza MD [Medical Doctor] - As per Instructions
[2017-06-19 10:16] VITALS: BP 131/100
== END 2017-06-19 10:16 | disposition home or self-care (01) ==
DX: G43.A0 Cyclical vomiting, in migraine, not intractable (principal)
CPT/HCPCS: 96374; J2405

== ENCOUNTER 2017-06-20 08:19 | Emergency (ER) | payer BC ==
[2017-06-20] MEDS ORDERED: NS 1,000 ML IV ONE ×2 (08:51→09:47)
[2017-06-20] MEDS ORDERED: ONDANSETRON 4 MG/2 ML VIAL IVP ONE (08:53)
[2017-06-20] MEDS ORDERED: LORazepam 2 MG/ML INJ IVP ONE ×2 (09:02→10:23)
[2017-06-20] MEDS ORDERED: FAMOTIDINE 20 MG in NS 100 ML IV ONE (09:11)
--- NOTE | 2017-06-20 09:12 | EDPHY ---
General Time Seen by Provider: 06/20/17 09:00 Narrative: CHIEF COMPLAINT: Nausea vomiting HISTORY OF PRESENT ILLNESS: Patient complains of nausea vomiting over the past 4 days. Gradual onset. Constant duration. He has been unable to keep any liquids or solids down. He has been in this emergency department 3 times prior to today for the same complaint. Each time he had significant improvement and went home with nausea medications. Most recent visit was yesterday. He was discharged home with oral and suppository promethazine. He took the yesterday after going home within the symptoms returned, including after the suppository last night. He describes it as intractable nausea but no abdominal pain at this time. No fever. No bloody stools or emesis at this time. He has had some occasional bloody emesis in the past. He has a history of marijuana use, last using 5 days ago. He has had symptoms similar to this on and off for many years, including high school when he was smoking marijuana. He has no formal GI evaluation for this. He has no trauma or injury. No other associated complaints or modifying factors. REVIEW OF SYSTEMS: Ten systems reviewed and are negative unless otherwise noted in the HPI PCP: In [place] SPECIALISTS: None PAST MEDICAL HISTORY: Cyclical vomiting, anxiety, OCD PAST SURGICAL HISTORY: No recent surgeries SOCIAL HISTORY: No tobacco use. Does use marijuana frequently. Last use 5 days ago. [employer] student. Originally from [place]. His mother has flown in to accompany him at this time FAMILY HISTORY: Noncontributory EXAMINATION General Appearance: Alert, no distress, laying in a lateral position. Well developed and well nourished Head: normocephalic, atraumatic Eyes: Pupils equal and round, no conjunctival pallor or injection ENT, Mouth: Mucous membranes slightly dry per airway patent. Neck: Normal inspection, supple, non-tender Respiratory: Lungs are clear to auscultation Cardiovascular: Regular rate and rhythm. No murmur. Gastrointestinal: Abdomen is soft and nontender. No tympany rigidity. No guarding. No palpable mass. Back: non-tender, no bony abnormalities Neurological: A&O, nonfocal, normal gait Skin: Warm and dry, no rash. No petechiae or purpura Extremities: Nontender, no pedal edema Psychiatric: Mood and affect normal. Anxious DIFFERENTIAL DIAGNOSES: Including but not limited to cyclical vomiting, gastritis, THC gastritis, pancreatitis, cholecystitis, cholelithiasis MDM: 9:10 a.m. Nausea vomiting and abdominal cramping over the past 4 days. The patient has been seen here 3 times in the past 48 hr prior to this examination. His abdominal exam is benign. Vital signs are within normal limits. He is in no acute distress. He is currently receiving IV fluid. I have ordered multiple medications for his symptoms. I discussed his documented Haldol allergy. He describes a very mild dystonic reaction including only the tongue that resolved with Benadryl. He did not have any systemic reaction, full dystonia, anaphylaxis. He says that if he had to he would take the Haldol with Benadryl but does not want to at this time. 9:25 a.m. I have reviewed the patient's STATE ATTORNEY aware report, including [place] prescriptions. 9:40 a.m. Patient re-evaluated. He has received his IV medications, and the scopolamine patch just arrived from pharmacy. He is starting to feel better at this time. 10:15 a.m. Patient re-evaluated. He was originally started feel better but says he is now more nauseated. He says he would like to try Haldol. I discussed the risks and benefits, and I do feel it is safe to try based on his previous reaction. I have ordered this to be given in conjunction with Benadryl and Ativan. 11:00 a.m. Patient re-evaluated. He is resting comfortably asleep. Awakes easily. Feeling much better 11:50 a.m. Patient re-evaluated. He is feeling significantly better. Mild nausea but no vomiting. He would like to go home. I do feel he is stable to do so. He has ambulated with no difficulty. We discussed follow up with GI and the on-call primary care physician. We discussed continuing refrain from marijuana use. We discussed ED precautions and short course of Ativan prescription. He is to continue his promethazine and Zofran as needed. He is to take [id number] Pepcid twice daily. ED precautions discussed. I have answered all his questions he is discharged home stable condition SUPERVISION: Patient was independently examined, but I discussed the case with my secondary supervising physician Dr. Raza - History Smoking Status: Never smoked - Objective Vital Signs: Initial Vital Signs Temperature (C) 98.1 F 05/04/18 08:21 Heart Rate 77 06/20/17 08:21 Respiratory Rate 20 06/20/17 08:21 Blood Pressure 131/100 H 06/20/17 08:21 O2 Sat (%) 98 06/20/17 08:21 O2 Delivery Mode Room Air Allergies/Adverse Reactions: haloperidol [From Haldol] Allergy (Verified 06/20/17 08:20) Home Medications: Medication Instructions Recorded Prozac 06/17/17 Ondansetron 06/18/17 Phenergan 06/18/17 Promethazine HCl [Phenergan 50mg 50 mg MA Q8 PRN #20 suppr 06/18/17 supp (*)] Famotidine [Pepcid 20 MG (*)] 20 mg PO BID #20 tab 06/20/17 LORazepam [Ativan] 1 mg PO Q8 PRN #9 tablet 06/20/17 Laboratory Results: Laboratory Results 06/20/17 08:48 06/20/17 08:48 06/20/17 06/20/17 08:48 08:48 WBC 5.46 10^3/uL 10^3/uL (3.80-9.50) RBC 5.25 10^6/uL 10^6/uL (4.40-6.38) Hgb 14.5 g/dL g/dL (13.7-17.5) Hct 40.6 % % (40.0-51.0) MCV 77.3 fL L fL (81.5-99.8) MCH 27.6 pg L pg (27.9-34.1) MCHC 35.7 g/dL g/dL (32.4-36.7) RDW 12.2 % % (11.5-15.2) Plt Count 252 10^3/uL 10^3/uL (150-400) Sodium 140 mEq/L mEq/L (135-145) Potassium 3.6 mEq/L mEq/L (3.5-5.2) Chloride 106 mEq/L mEq/L (97-110) Carbon Dioxide 18 mEq/l L mEq/l (22-31) Anion Gap 16 mEq/L mEq/L (8-16) BUN 10 mg/dL mg/dL (7-23) Creatinine 1.1 mg/dL mg/dL (0.7-1.3) Estimated GFR > 60 Glucose 107 mg/dL H mg/dL (70-100) Calcium 9.4 mg/dL mg/dL (8.5-10.4) Total Bilirubin 0.9 mg/dL mg/dL (0.1-1.4) Conjugated Bilirubin 0.3 mg/dL mg/dL (0.0-0.5) Unconjugated Bilirubin 0.6 mg/dL mg/dL (0.0-1.1) AST 19 IU/L IU/L (17-59) ALT 22 IU/L IU/L (21-72) Alkaline Phosphatase 64 IU/L IU/L (38-126) Total Protein 7.1 g/dL g/dL (6.3-8.2) Albumin 4.4 g/dL g/dL (3.5-5.0) Lipase 89 IU/L IU/L (23-300) Medications Given: Discontinued Medications Diphenhydramine HCl (Benadryl Injection) 25 mg IVP EDNOW ONE Stop: 06/20/17 09:11 Last Admin: 06/20/17 09:23 Dose: 25 mg Diphenhydramine HCl (Benadryl Injection) 25 mg IVP EDNOW ONE Stop: 06/20/17 10:22 Last Admin: 06/20/17 10:34 Dose: 25 mg Famotidine (Pepcid) 20 mg IVP EDNOW ONE Stop: 06/20/17 09:18 Last Admin: 06/20/17 09:23 Dose: 20 mg Haloperidol Lactate (Haldol Injection) 2.5 mg IVP EDNOW ONE Stop: 06/20/17 10:22 Last Admin: 06/20/17 10:34 Dose: 2.5 mg Sodium Chloride (Ns) 1,000 mls @ 0 mls/hr IV ONCE ONE PRN Reason: Wide Open Stop: 06/20/17 08:52 Last Admin: 06/20/17 08:57 Dose: 1,000 mls Famotidine 20 mg/ Sodium (Chloride) 102 mls @ 408 mls/hr IV EDNOW ONE Stop: 06/20/17 09:25 Last Admin: 06/20/17 09:32 Dose: Not Given Sodium Chloride (Ns) 1,000 mls @ 0 mls/hr IV ONCE ONE PRN Reason: Wide Open Stop: 06/20/17 09:48 Last Admin: 06/20/17 09:49 Dose: 1,000 mls Lorazepam (Ativan Injection) 1 mg IVP EDNOW ONE Stop: 06/20/17 09:03 Last Admin: 06/20/17 09:23 Dose: 1 mg Lorazepam (Ativan Injection) 1 mg IVP EDNOW ONE Stop: 06/20/17 10:24 Last Admin: 06/20/17 12:08 Dose: Not Given Ondansetron HCl (Zofran) 4 mg IVP EDNOW ONE Stop: 06/20/17 08:54 Last Admin: 06/20/17 08:58 Dose: 4 mg Scopolamine HBr (Scopolamine Patch) 1 patch TD Q72H [place] Stop: 12/17/17 09:14 Last Admin: 06/20/17 09:43 Dose: 1 patch Departure - Departure Disposition: Home, Routine, Self-Care Clinical Impression: Cyclical vomiting, not intractable Qualifiers: Nausea presence: with nausea Qualified Code(s): G43.A0 - Cyclical vomiting, not intractable Gastritis Qualifiers: Gastritis type: unspecified gastritis Chronicity: acute Gastritis bleeding: without bleeding Qualified Code(s): K29.00 - Acute gastritis without bleeding Condition: Good Instructions: Famotidine (By mouth), Lorazepam (By mouth), Acute Nausea and Vomiting (ED) Additional Instructions: 1. Clear liquid diet as discussed. Advance slowly as tolerated 2. You have a scopolamine patch behind your left ear. This needs to be taken off on Friday at 9:00 a.m.. If you touch the patch, you must wash your hands. If he become lightheaded or dizzy, removed the patch immediately 3. Contact the on-call primary care physician and GI physician as provided 4. ED precautions as discussed Referrals: Hugo Garza MD [Medical Doctor] - As per Instructions Estefania Torres MD [Medical Doctor] - As per Instructions Stand Alone Forms: School Excuse Prescriptions: Famotidine [Pepcid 20 MG (*)] 20 mg PO BID #20 tab LORazepam [Ativan] 1 mg PO Q8 PRN #9 tablet PRN Reason: Anxiety
[2017-06-20] MEDS ORDERED: SCOPOLAMINE HYDROBROMIDE 1 MG/3 DAYS PATCH TD SCH (09:15)
[2017-06-20] MEDS ORDERED: FAMOTIDINE 20 MG/2 ML SDV IVP ONE (09:17)
[2017-06-20] MEDS ORDERED: HALOPERIDOL LACT 5 MG/ML INJ IVP ONE (10:21)
[2017-06-20 12:20] VITALS: BP 122/84
== END 2017-06-20 12:18 | disposition home or self-care (01) ==
DX: G43.A0 Cyclical vomiting, in migraine, not intractable (principal); K29.00 Acute gastritis without bleeding
CPT/HCPCS: 96374; J1200; J1630; J2060; J2405

== ENCOUNTER 2017-06-26 19:58 | Emergency (ER) | payer BC ==
--- NOTE | 2017-06-26 20:06 | EDPHY ---
H & P Stated Complaint: SOB, Chest pain just got off long flight Time Seen by Provider: 06/26/17 20:05 HPI/ROS: HPI: This is a 22-year-old male who presents with Chief Complaint: Chest pain, shortness of breath, just got off long flight Location: Mid sternal Quality: Sharp, constant pain Duration: Approximately 1 hr prior to arrival Signs and Symptoms: no shortness of breath at rest, no shortness of breath on exertion, no cough, + chest pain, no palpitations, no lower extremity edema, no wheezing, no orthopnea, no paroxysmal nocturnal dyspnea, no fever, no injury/ trauma, no hemoptysis, no carpal pedal spasms Timing: Acute Severity: Severe Context: Patient has a history of OCD, cyclical vomiting syndrome, anxiety presents with his father complaints of sudden onset of sharp, severe, nonradiating midsternal chest pain that occurred after eating half of a cheeseburger with Togolese fries and drinking entire glass of Coke. Patient reports this is the pain he has never felt before. Patient recently returned from airplane travel with his father from the [facility]. Denies any shortness of breath/palpitation/lower extremity edema. Patient has not used marijuana in 10 days. Modifying Factors: None Comment: ROS: see HPI Constitutional: No fever, no chills, no weight loss Eyes: No blurred vision Respiratory: + shortness of breath, no cough Cardiovascular: + chest pain, no palpitations, no lower extremity edema Gastrointestinal: No nausea, no vomiting, no diarrhea Genitourinary: No dysuria Extremities: No myalgias Neurologic: No weakness, no numbness Skin: No rashes Hematologic: No bruising, no bleeding MEDICAL/SURGICAL/SOCIAL HISTORY: Medical history: OCD, Severe anxiety, cyclical vomiting syndrome. Surgical history: Denies Social history: Originally from [place]. CONSTITUTIONAL: Young adult white male, moderate anxiety, nontoxic appearance, awake and alert, no obvious distress HEENT: Atraumatic and normocephalic, PERRL, EOMI. Nares patent; no rhinorrhea; no nasal mucosal edema. Tympanic membranes clear. Oropharynx clear, no exudate and moist pink mucosa. Airway patent. No lymphadenopathy. No meningismus. Cardiovascular: Normal S1/S2, mild tachycardia, regular rhythm, without murmur rub or gallop. PULMONARY/CHEST: Symmetrical and nontender. Clear to auscultation bilaterally. Good air movement. No accessory muscle usage. ABDOMEN: Soft, nondistended, nontender, no rebound, no guarding, no peritoneal signs, no masses or organomegaly. No CVAT. EXTREMITIES: 2/2 pulses, strength 5/5, no deformities, no clubbing, no cyanosis or edema. NEUROLOGICAL: no focal neuro deficits. GCS 15. SKIN: Warm and dry, no erythema. no rash. Good capillary refill. Source: Patient Exam Limitations: No limitations - Personal History Current Tetanus/Diphtheria Vaccine: Yes Current Tetanus Diphtheria and Acellular Pertussis (TDAP): Yes - Medical/Surgical History Hx Asthma: No Hx Chronic Respiratory Disease: No Hx Diabetes: No Hx Cardiac Disease: No Hx Renal Disease: No Hx Cirrhosis: No Hx Alcoholism: No Hx HIV/AIDS: No Hx Splenectomy or Spleen Trauma: No Other PMH: severe anxiety/?cyclical vomiting - Social History Smoking Status: Never smoked Constitutional: Initial Vital Signs Temperature (C) 36.2 C 06/26/17 20:01 Heart Rate 102 H 06/26/17 20:01 Respiratory Rate 18 06/26/17 20:01 Blood Pressure 158/105 H 06/26/17 20:01 O2 Sat (%) 97 06/26/17 20:01 O2 Delivery Mode Room Air Allergies/Adverse Reactions: haloperidol [From Haldol] Allergy (Verified 06/26/17 20:00) Home Medications: Medication Instructions Recorded Prozac 06/17/17 LORazepam [Ativan] 1 mg PO Q8 PRN #9 tablet 06/20/17 Pantoprazole Sodium [Protonix 40mg 40 mg PO HS #30 tab 06/26/17 (*)] Medical Decision Making - Diagnostics EKG Interpretation: 12 lead EKG: Indication: chest pain Rhythm: Normal sinus rhythm [place]: Normal Intervals: Normal QRS: Normal ST segments: Normal INTERPRETATION: ectopic atrial rhythm The 12 lead EKG was interpreted by attending. Imaging Results: Imaging Impressions Chest X-Ray 06/26/17 20:33 Impression: No acute findings in the chest. ED Course/Re-evaluation: EKG, chest x-ray, D-dimer ordered Vital signs stable upon arrival. Suspect gastritis versus esophageal spasm versus GERD. PERC rule=low risk PE D-dimer is unremarkable Chest x-ray shows no signs of effusion, no opacity, no pneumothorax ECG shows no signs of arrhythmia/acute ischemia This patient was seen under the supervision of my secondary supervising physician. I evaluated care for this patient independently. Differential Diagnosis: Chest pain including but not limited to myocardial ischemia, pulmonary embolus, esophageal spasm, gastritis, chest wall pain, pleural inflammation and pulmonary infectious causes. - Data Points Laboratory Results: 06/26/17 20:39 D-Dimer < 0.27 ug/mLFEU ug/mLFEU (0.00-0.50) Departure - Departure Disposition: Home, Routine, Self-Care Clinical Impression: Gastroesophageal reflux disease with esophagitis Condition: Good Instructions: Diet for Stomach Ulcers and Gastritis (ED), Gastroesophageal Reflux Disease (ED), Esophageal Spasm (ED) Additional Instructions: Consume a minimum of 8-10 glasses of water or electrolyte fluid replacement drinks that include Gatorade, Powerade, Pedialyte. Eat a bland diet for the next 48 hours and then slowly advance as tolerated. Avoid drinking caffeinated/carbonated beverages. Do not eat fatty/fried/spicy/citrus foods. Eat small frequent meals throughout the day instead of a large meal. Take Protonix 40 mg at bedtime to reduce your stomach acid. Referrals: PCP Not In,Dictionary [Medical Doctor] - As per Instructions Prescriptions: Pantoprazole Sodium [Protonix 40mg (*)] 40 mg PO HS #30 tab
--- NOTE | 2017-06-26 20:13 | CPEKG ---
Heart Rate: 93 RR Interval: 645 P-R Interval: 136 QRSD Interval: 90 QT Interval: 320 QTC Interval: 398 P Nerinx: -80 QRS Nerinx: 83 T Wave Nerinx: 14 EKG Severity - BORDERLINE ECG - EKG Impression: ECTOPIC ATRIAL RHYTHM Electronically Signed By: Hilary Monae 26-Jun-2017 21:25:36
[2017-06-26 21:35] VITALS: BP 127/75
== END 2017-06-26 21:45 | disposition home or self-care (01) ==
DX: K21.0 Gastro-esophageal reflux disease with esophagitis (principal)

== ENCOUNTER 2017-11-17 11:19 | Emergency (ER) | payer BC ==
--- NOTE | 2017-11-17 12:26 | EDPHY ---
H & P Time Seen by Provider: 11/17/17 12:25 HPI/ROS: CHIEF COMPLAINT: Nausea vomiting abdominal pain HISTORY OF PRESENT ILLNESS: Patient is had previous visits and his ED records from June 2nd 3rd of this year personally reviewed. He says he stop smoking marijuana over the summer but then"fell off the wagon"and today symptoms are identical to previous episodes. Started yesterday with abdominal pain anxiety and multiple episodes of vomiting without diarrhea. No blood or coffee grounds in the emesis. Symptoms are severe. Not worse or better with position, worse with oral intake. Not associated with recent injury or trauma, fever or chills, urinary or testicular symptoms. REVIEW OF SYSTEMS: Eye: no change in vision ENT: no sore throat Cardiac: no chest pain or syncope Pulmonary: no cough or SOB Abdomen: HPI Musculoskeletal: no back pain Skin: no rash Neuro: no headache Constitutional: no fever : no urinary symptoms A comprehensive 10 point review of systems is otherwise negative aside from elements mentioned in the history of present illness. PAST MEDICAL HISTORY: Cyclical vomiting and anxiety Social history: No alcohol, continues to use marijuana General Appearance: Alert and conversant, cooperative. Eyes: No scleral icterus. ENT, Mouth: Dry mucous membranes. Respiratory: Normal respiratory effort, breath sounds equal, lungs are clear to auscultation. Cardiovascular: Regular rate and rhythm. Gastrointestinal: Abdomen is soft and non tender. No rebound or guarding. No epigastric tenderness. Neurological: Alert, face symmetric, normal motor and sensory in extremities. Skin: Warm and dry, no rashes. Musculoskeletal: No peripheral edema. Psychiatric: Moderately anxious. Emergency Department course/MDM: Phenergan 12.5, Ativan 1 mg IV, Benadryl 50 mg IV, normal saline 2 L IV. 1330 abdomen soft and nontender, patient says he feels adequately treated, does not want additional antiemetics or antianxiety medication at this time. Smoking Status: Never smoked Constitutional: Initial Vital Signs Temperature (C) 36.5 C 11/17/17 11:24 Heart Rate 85 11/17/17 11:24 Respiratory Rate 18 11/17/17 11:24 Blood Pressure 133/84 H 11/17/17 11:24 O2 Sat (%) 98 11/17/17 11:24 O2 Delivery Mode Room Air Allergies/Adverse Reactions: haloperidol [From Haldol] Allergy (Verified 11/17/17 11:26) Home Medications: Medication Instructions Recorded Prozac 06/17/17 LORazepam [Ativan] 1 mg PO Q8 PRN #9 tablet 06/20/17 Pantoprazole Sodium [Protonix 40mg 40 mg PO HS #30 tab 06/26/17 (*)] Medical Decision Making - Data Points Medications Given: Discontinued Medications Diphenhydramine HCl (Benadryl Injection) 50 mg IVP EDNOW ONE Stop: 11/17/17 12:32 Last Admin: 11/17/17 12:55 Dose: 50 mg Sodium Chloride (Ns) 1,000 mls @ 0 mls/hr IV EDNOW ONE; Wide Open PRN Reason: Protocol Stop: 11/17/17 12:32 Last Admin: 11/17/17 12:55 Dose: 1,000 mls Sodium Chloride (Ns) 1,000 mls @ 0 mls/hr IV EDNOW ONE; Wide Open PRN Reason: Protocol Stop: 11/17/17 12:32 Last Admin: 11/17/17 12:56 Dose: 1,000 mls Lorazepam (Ativan Injection) 1 mg IVP EDNOW ONE Stop: 11/17/17 12:32 Last Admin: 11/17/17 12:55 Dose: 1 mg Promethazine HCl (Phenergan) 12.5 mg IVP EDNOW ONE Stop: 11/17/17 12:32 Last Admin: 11/17/17 12:55 Dose: 12.5 mg Departure - Departure Disposition: Home, Routine, Self-Care Clinical Impression: Cyclic vomiting syndrome Qualifiers: Vomiting Intractability: non-intractable Nausea presence: with nausea Qualified Code(s): G43.A0 - Cyclical vomiting, not intractable Condition: Good Instructions: Cyclic Vomiting Syndrome (ED) Referrals: Alex Khan MD [Medical Doctor] - As per Instructions
[2017-11-17] MEDS ORDERED: NS 1,000 ML IV ONE ×2 (12:31)
[2017-11-17] MEDS ORDERED: PROMETHAZINE HCL 25 MG/ML INJ IVP ONE (12:31)
[2017-11-17] MEDS ORDERED: LORazepam 2 MG/ML INJ IVP ONE (12:31)
[2017-11-17 14:47] VITALS: BP 112/67
== END 2017-11-17 14:45 | disposition home or self-care (01) ==
DX: G43.A0 Cyclical vomiting, in migraine, not intractable (principal); F41.9 Anxiety disorder, unspecified; E86.9 Volume depletion, unspecified
CPT/HCPCS: 96374; J1200; J2060; J2550

== ENCOUNTER 2017-11-19 06:59 | Emergency (ER) | payer BC ==
[2017-11-19] MEDS ORDERED: CAPSACIAN 0.075% CREAM TP ONE (07:12)
--- NOTE | 2017-11-19 07:21 | EDPHY ---
H & P Time Seen by Provider: 11/19/17 07:06 HPI/ROS: HPI Cyclic vomiting. 22-year-old male by private vehicle. This patient has a history of cyclic vomiting/cannabinoid hyperemesis syndrome. He reports that he has been smoking marijuana on a regular basis. He was seen in our emergency department just last week for the same complaint. He has been seen in our emergency department multiple times in the past for this complaint. He reports that he started vomiting on Friday morning. Smokes some marijuana Friday evening and felt better but then started vomiting again after smoking marijuana on Friday. He presents the emergency department stating that he has been dry heaving and vomiting for most of the night. He denies any abdominal pain. He describes his symptoms as typical of his previous exacerbations of cyclic vomiting. ROS: Constitutional: No fever, no chills. No weakness. Cardiac: No chest pain, no palpitations. Gastrointestinal: No abdominal pain, as above, no diarrhea. Genitourinary: No hematuria. No dysuria or increased frequency with urination. Musculoskeletal: No back pain. No neck pain. No myalgias or arthralgias. Skin: No rashes. Neurological: No headache. No focal weakness or altered sensation. Past medical history: Severe anxiety. Cyclic vomiting/cannabis hyperemesis syndrome. Social history: Nonsmoker. Here by himself. Denies alcohol. Physical Exam: General Appearance: Alert, not in distress but intermittently retching and dry heaving. This patient is responding to questions appropriately and in full sentences. This patient appears well-hydrated and well-nourished. Eyes: Pupils equal and round no pallor or injection. No lid edema, erythema or injection. Respiratory: There are no retractions, lungs are clear to auscultation with good air movement bilaterally. Cardiovascular: Regular rate and rhythm. No murmur. Gastrointestinal: Abdomen is soft and nontender, no masses, bowel sounds normal. No focal tenderness at McBurney's point. No Christiansen sign. Neurological: Motor sensory function is grossly intact. Cranial nerves are normal. Gait is normal. Skin: Warm and dry, no rashes. Musculoskeletal: Neck is supple and nontender. Extremities are symmetrical. All joints range without pain or impingement. Psychiatric: No agitation. No depression. Database: EKG: Imaging: Procedures: Emergency department course: Triage vital signs reviewed. He is mildly hypertensive. Vital signs otherwise normal. We will try capsaicin cream applied to his abdomen as initial treatment. If no resolution with this an IV will be established he will be started on IV normal saline and given a combination of Zofran, Ativan and Phenergan. 7:55 a.m., the patient was re-evaluated. His nausea and vomiting have resolved with treatment with capsaicin cream only. He complained of burning from the cream apply to his abdomen. He has been rubbing it with a towel. He has some mild erythema associated with this. Otherwise he has a benign abdomen. I do not suspect an allergic/anaphylactic reaction. I did offer him an IV but he declines. He states that his nausea has completely resolved and feels comfortable going home at this time. Follow-up and return to emergency department precautions have been discussed with him. All of his questions were answered. He was discharged from the emergency department in good condition. Prior to discharge, the patient was complaining of superficial abdominal discomfort secondary to the capsaicin cream. A lidocaine patch was applied to this area. He had relief. He was discharged in good condition as above. Differential Diagnosis: The differential diagnosis on this patient includes but is not limited to cannabinoid hyperemesis syndrome, cyclic vomiting. Bowel obstruction, appendicitis, cholecystitis, pancreatitis, other surgical etiology unlikely. This represents a partial list of diagnoses considered. These considerations are based on history, physical exam, past history, reassessment and diagnostic testing. Smoking Status: Never smoked Constitutional: Initial Vital Signs Temperature (C) 36.7 C 11/19/17 07:02 Heart Rate 67 11/19/17 07:02 Respiratory Rate 18 11/19/17 07:02 Blood Pressure 138/89 H 11/19/17 07:02 O2 Sat (%) 97 11/19/17 07:02 O2 Delivery Mode Room Air Allergies/Adverse Reactions: haloperidol [From Haldol] Allergy (Verified 11/19/17 07:02) Home Medications: Medication Instructions Recorded Prozac 06/17/17 LORazepam [Ativan] 1 mg PO Q8 PRN #9 tablet 06/20/17 Pantoprazole Sodium [Protonix 40mg 40 mg PO HS #30 tab 06/26/17 (*)] Promethazine HCl [Phenergan 25mg 25 mg PO Q4-6PRN PRN #12 tab 11/19/17 (*)] Medical Decision Making - Data Points Medications Given: Discontinued Medications Capsaicin (Capsacian 0.075%) 1 mary ellen TP EDNOW ONE Stop: 11/19/17 07:13 Last Admin: 11/19/17 07:27 Dose: 1 gm Miscellaneous Medication (Icy Hot Lidocaine/Menthol 4%/1% Patch) 2 patch TD EDNOW ONE Stop: 11/19/17 08:14 Last Admin: 11/19/17 08:17 Dose: 2 patch Departure - Departure Disposition: Home, Routine, Self-Care Clinical Impression: Cannabinoid hyperemesis syndrome Condition: Good Instructions: Promethazine (By mouth), Cyclic Vomiting Syndrome (ED) Additional Instructions: Read and follow provided instructions. Follow-up with your primary care physician in 1-2 days for re-evaluation as discussed. Take medication as prescribed for nausea. Do not smoke marijuana. Return to the emergency department for vomiting and inability to keep fluids down despite medications, abdominal pain, blood in your stool or other serious concerns. Referrals: NONE *PRIMARY CARE P,. [Primary Care Provider] - As per Instructions Prescriptions: Promethazine HCl [Phenergan 25mg (*)] 25 mg PO Q4-6PRN PRN #12 tab PRN Reason: For Nausea & Vomiting
[2017-11-19 08:03] VITALS: BP 140/77
[2017-11-19] MEDS ORDERED: LIDOCAINE 4%/MENTHOL 1% PATCH TD ONE (08:13)
[2017-11-19] MEDS ORDERED: PATCH REMOVAL 1 EA PATCH TD SCH (21:00)
== END 2017-11-19 08:28 | disposition home or self-care (01) ==
DX: F12.188 Cannabis abuse with other cannabis-induced disorder (principal); G43.A0 Cyclical vomiting, in migraine, not intractable

== ENCOUNTER 2017-11-19 10:25 | Emergency (ER) | payer BC ==
[2017-11-19] MEDS ORDERED: NS 1,000 ML IV ONE (11:01)
[2017-11-19] MEDS ORDERED: LORazepam 2 MG/ML INJ IVP ONE (11:01)
[2017-11-19] MEDS ORDERED: PROMETHAZINE HCL 25 MG/ML INJ IVP ONE (11:02)
--- NOTE | 2017-11-19 11:02 | EDPHY ---
H & P Stated Complaint: cyclic vomiting here earlier Time Seen by Provider: 11/19/17 10:49 HPI/ROS: CHIEF COMPLAINT: Nausea vomiting abdominal pain HISTORY OF PRESENT ILLNESS: 22-year-old male with prior emergency department visits for similar complaints, seen the ER earlier today for complaints of nausea vomiting, treated with topical capsaicin which he states alleviated his nausea temporarily although he did not like the topical discomfort. He left the emergency department and shortly thereafter feels that the capsaicin affects wore off any started experiencing return of symptoms. When he was seen the ER 2 days ago he notes that this combination of Ativan Benadryl Phenergan worked quite effectively. States that he stop smoking marijuana over the summer but then recently "fell off the wagon" and started smoking marijuana again recently. Shortly prior to arrival he states that he may have noted a bloody discoloration however was not grossly bloody not described as gross hematemesis or coffee-ground emesis. REVIEW OF SYSTEMS: 10 systems reviewed and negative with the exception of the elements mentioned in the history of present illness PAST MEDICAL & SURGICAL HISTORY: cyclic vomiting syndrome . No history of abdominal surgeries SOCIAL HISTORY: Positive for marijuana use PHYSICAL EXAM (Prior to examination, patient consented to physical exam, hands were washed and my usual and customary physical exam procedures followed) 1) GENERAL: Well-developed, well-nourished, alert and oriented. Appears uncomfortable, sitting upright retching into an emesis basin 2) HEAD: Normocephalic, atraumatic 3) HEENT: Pupils equal, round, reactive to light bilaterally. Sclera anicteric. Nasopharynx, oropharynx, clear, no lesions. Dry mucous membranes. 4) NECK: Full range of motion, no meningeal signs. 5) LUNGS: Clear auscultation bilaterally, no wheezes, no rhonchi, no retractions. 6) HEART: Regular rate and rhythm, no murmur, no heave, no gallop. 7) ABDOMEN: No guarding, no rebound, no focal tenderness, negative McBurney's, negative Christiansen's, negative Rovsing's, negative peritoneal sign, unable to elicit abdominal pain on exam 8) MUSCULOSKELETAL: Moving all extremities, no focal areas of tenderness, no obvious trauma. No peripheral edema or discoloration. 9) BACK: No CVA tenderness, no midline vertebral tenderness, no fluctuance, no step-off, no obvious trauma, no visual or palpable abnormality. 10) SKIN: No rash, no petechiae. 11) Psychiatric: Patient is oriented X 3, there is no agitation. DIFFERENTIAL DIAGNOSIS: In no particular order including but not limited to abdominal migraine, cyclic vomiting syndrome, Shanika-Bro tear - Personal History Current Tetanus Diphtheria and Acellular Pertussis (TDAP): Yes - Medical/Surgical History Hx Asthma: No Hx Chronic Respiratory Disease: No Hx Diabetes: No Hx Cardiac Disease: No Hx Renal Disease: No Hx Cirrhosis: No Hx Alcoholism: No Hx HIV/AIDS: No Hx Splenectomy or Spleen Trauma: No Other PMH: severe anxiety/?cyclical vomiting - Social History Smoking Status: Never smoked Constitutional: Initial Vital Signs Temperature (C) 36.9 C 11/19/17 10:32 Heart Rate 70 11/19/17 10:32 Respiratory Rate 19 11/19/17 10:32 Blood Pressure 161/80 H 11/19/17 10:32 O2 Sat (%) 99 11/19/17 10:32 O2 Delivery Mode Room Air Allergies/Adverse Reactions: haloperidol [From Haldol] Allergy (Verified 11/19/17 10:31) Home Medications: Medication Instructions Recorded Prozac 06/17/17 LORazepam [Ativan] 1 mg PO Q8 PRN #9 tablet 06/20/17 Pantoprazole Sodium [Protonix 40mg 40 mg PO HS #30 tab 06/26/17 (*)] Ondansetron Odt [Zofran Odt] 4 mg PO Q4PRN PRN #10 tab 11/19/17 Pantoprazole Sodium [Protonix 40mg 40 mg PO DAILY #30 tab 11/19/17 (RX)] Promethazine HCl [Phenergan 25mg 25 mg PO Q4-6PRN PRN #12 tab 11/19/17 (*)] Zofran 4 mg Inj (*) 11/19/17 Medical Decision Making ED Course/Re-evaluation: 10:57 a.m.: I reviewed the patient's old medical records. He does not want capsaicin noting that it caused him topical skin discomfort. He notes that when he was in the ER 2 days ago the combination of Benadryl Ativan Phenergan as well as IV hydration assisted him tremendously. Will administer similar combination and re-evaluated as well as check diagnostic studies. Noon: Re-evaluation, sleeping, easily woken, tolerating sips. 12:20 p.m.: Re-evaluation, tolerating oral intake. Abdomen is soft no guarding no rebound. Doubt acute surgical abdominal pathology. Doubt acute appendicitis. Doubt bowel obstruction. Plan will be discharge. Recommend proton pump inhibitor initiation. Given prescription for Protonix. Recommend follow up with Gastroenterology. Recommend avoidance of cannabis products. 12:45 p.m.: Re-evaluation, tolerating oral intake, abdomen soft. Plan will be discharge home. - Data Points Laboratory Results: Laboratory Results 11/19/17 11:00 11/19/17 11:00 11/19/17 11/19/17 11:00 11:00 WBC 8.88 10^3/uL 10^3/uL (3.80-9.50) RBC 5.11 10^6/uL 10^6/uL (4.40-6.38) Hgb 14.5 g/dL g/dL (13.7-17.5) Hct 41.3 % % (40.0-51.0) MCV 80.8 fL L fL (81.5-99.8) MCH 28.4 pg pg (27.9-34.1) MCHC 35.1 g/dL g/dL (32.4-36.7) RDW 11.9 % % (11.5-15.2) Plt Count 248 10^3/uL 10^3/uL (150-400) MPV 9.8 fL fL (8.7-11.7) Neut % (Auto) 86.1 % H % (39.3-74.2) Lymph % (Auto) 10.0 % L % (15.0-45.0) [place] % (Auto) 3.5 % L % (4.5-13.0) Eos % (Auto) 0.0 % L % (0.6-7.6) Baso % (Auto) 0.2 % L % (0.3-1.7) Nucleat RBC Rel Count 0.0 % % (0.0-0.2) Absolute Neuts (auto) 7.64 10^3/uL H 10^3/uL (1.70-6.50) Absolute Lymphs (auto) 0.89 10^3/uL L 10^3/uL (1.00-3.00) Absolute Monos (auto) 0.31 10^3/uL 10^3/uL (0.30-0.80) Absolute Eos (auto) 0.00 10^3/uL L 10^3/uL (0.03-0.40) Absolute Basos (auto) 0.02 10^3/uL 10^3/uL (0.02-0.10) Absolute Nucleated RBC 0.00 10^3/uL 10^3/uL (0-0.01) Immature Gran % 0.2 % % (0.0-1.1) Immature Gran # 0.02 10^3/uL 10^3/uL (0.00-0.10) Sodium 142 mEq/L mEq/L (135-145) Potassium 3.7 mEq/L mEq/L (3.3-5.0) Chloride 105 mEq/L mEq/L (97-110) Carbon Dioxide 25 mEq/l mEq/l (22-31) Anion Gap 12 mEq/L mEq/L (8-16) BUN 17 mg/dL mg/dL (7-23) Creatinine 0.9 mg/dL mg/dL (0.7-1.3) Estimated GFR > 60 Glucose 131 mg/dL H mg/dL (70-100) Calcium 9.5 mg/dL mg/dL (8.5-10.4) Total Bilirubin 0.7 mg/dL mg/dL (0.1-1.4) Conjugated Bilirubin 0.1 mg/dL mg/dL (0.0-0.5) Unconjugated Bilirubin 0.6 mg/dL mg/dL (0.0-1.1) AST 25 IU/L IU/L (17-59) ALT 28 IU/L IU/L (21-72) Alkaline Phosphatase 57 IU/L IU/L (38-126) Total Protein 7.2 g/dL g/dL (6.3-8.2) Albumin 4.5 g/dL g/dL (3.5-5.0) Lipase 57 IU/L IU/L (23-300) Medications Given: Discontinued Medications Diphenhydramine HCl (Benadryl Injection) 25 mg IVP EDNOW ONE Stop: 11/19/17 11:03 Last Admin: 11/19/17 11:11 Dose: 25 mg Sodium Chloride (Ns) 1,000 mls @ 0 mls/hr IV ONCE ONE PRN Reason: Wide Open Stop: 11/19/17 11:02 Last Admin: 11/19/17 11:11 Dose: 1,000 mls Lorazepam (Ativan Injection) 1 mg IVP EDNOW ONE Stop: 11/19/17 11:02 Last Admin: 11/19/17 11:12 Dose: 1 mg Promethazine HCl (Phenergan) 25 mg IVP EDNOW ONE Stop: 11/19/17 11:03 Last Admin: 11/19/17 11:12 Dose: 25 mg Departure - Departure Disposition: Home, Routine, Self-Care Clinical Impression: Cyclic vomiting syndrome Qualifiers: Vomiting Intractability: non-intractable Nausea presence: with nausea Qualified Code(s): G43.A0 - Cyclical vomiting, not intractable Condition: Good Instructions: Acute Nausea and Vomiting (ED) Additional Instructions: Please consider staying sober from a marijuana. Seek immediate medical attention if you develop new or worsening symptoms, if you develop fevers, chills, inability to tolerate oral intake or any other symptoms that concerns you. Referrals: Alex Khan MD [Medical Doctor] - 2-3 days, call for appt. Stand Alone Forms: School Excuse Prescriptions: Ondansetron Odt [Zofran Odt] 4 mg PO Q4PRN PRN #10 tab PRN Reason: Nausea Pantoprazole Sodium [Protonix 40mg (RX)] 40 mg PO DAILY #30 tab
[2017-11-19 11:22] LABS: PLATELET COUNT 248 10^3/uL (150-400)
--- NOTE | 2017-11-19 12:51 | ASMTCMCOM ---
CM Note CM Note Notes: Patient is a very pleasant 22 year old student at . He has a history of anxiety and marijuana use/cyclic vomiting for which he has visited this ER many times. Patient tells me that he was in [place] working over the summer, not smoking marijuana and was feeling well. He admits to resuming his marijuana use upon returning to [employer] for the semester. He is well aware of the cause and effect of his smoking and cyclic vomiting. I spoke with patient about his history, coping skills and non drug forms of reducing anxiety. He tells me that he does like to run and "should do that more often". I provided him with information for the on [facility]" and encouraged him to check it out. We talked about the importance of not substituting marijuana with "other substatnces" such as alcohol or "pills". An emphasis on relaxation, meditation, exercise, etc. was discussed. Patient appears to have good awareness of his "addiction" to marijuana and his potential propensity for abusing other substatnces. He was not aware of the recovery center/sobriety support available on campus and assures me that he will look into this Date Signed: 11/19/2017 12:51 PM Electronically Signed By:Selam Diez RN
[2017-11-19 13:18] VITALS: BP 126/80
== END 2017-11-19 13:15 | disposition home or self-care (01) ==
DX: G43.A0 Cyclical vomiting, in migraine, not intractable (principal)
CPT/HCPCS: 96374; J1200; J2060; J2550